=== PATIENT | female | born 1970 | race Asian ===

== ENCOUNTER 2021-08-07 06:36 | Day surgery (SDC) | payer OTHER, SELFPAY ==
[~2021-08-07] VITALS: Ht 154.9 cm; Wt 41.3 kg
[2021-08-07] MEDS ORDERED: SIMETHICONE 40 MG/0.6 ML ML ONE (06:42)
[2021-08-07] MEDS ORDERED: MEPERIDINE 100 MG INJ. 100 MG/ML VIAL ONE (06:43)
[2021-08-07] MEDS ORDERED: MIDAZOLAM HCL 5 MG/5 ML VIAL ONE (06:43)
[2021-08-07] MEDS ORDERED: fentaNYL CITRATE/PF 100 MCG/2 ML AMP ONE (06:47)
[2021-08-07 11:44] VITALS: BP_SYST 109
== END 2021-08-07 10:05 | disposition home or self-care (01) ==
LOC: SDS 06:36 → SMU 06:39 → SDS 10:05
PROVIDERS: ATTEND Surgery
DX: C18.9 Malignant neoplasm of colon, unspecified (principal); D12.3 Benign neoplasm of transverse colon; Z20.822 Contact with and (suspected) exposure to COVID-19
CPT/HCPCS: 36415; 44389; 44394; 84703; 87426; 88305; 99152; 99153; G0378; J2250; J3010; 45385; J2175